=== PATIENT | male | born 1985 | race Caucasian/White ===

== ENCOUNTER → 2020-06-22 13:26 | Outpatient (CLI) | payer OTHER, SELFPAY ==
[2020-06-22 10:52] VITALS: BMI 24.2
[2020-06-22 15:45] LABS: Free T3 2.8 pg/mL (2.18-3.98); T4 Free Direct 0.99 ng/dL (0.76-1.46); Thyroid Stim Hormone (TSH) 0.47 uIU/mL (0.358-3.74)
== END ==
PROVIDERS: PCP Internal Medicine; Referring Provider Internal Medicine; Visit Provider Internal Medicine
DX: R06.02 Shortness of breath (principal); R00.2 Palpitations
CPT/HCPCS: 36415; 82533; 84439; 84443; 84481

== ENCOUNTER → 2020-07-19 07:55 | Outpatient (CLI) | payer OTHER, SELFPAY ==
[2020-07-12 13:00] VITALS: BMI 23.6
--- NOTE | 2020-07-19 07:58 | ECHOD_ITS ---
Reason For Study: ARRYTHYMIA Procedure This was a 2D Doppler, Color Flow transthoracic echocardiogram. Exam performed in department. Left Ventricle Normal LV size. Left ventricular systolic function is normal. The estimated ejection fraction is 60 %. No regional wall motion abnormalities noted. Right Ventricle Normal RV size. Normal systolic function. Atria Normal left atrium. Normal right atrium. Mitral Valve Normal mitral valve. Tricuspid Valve Normal tricuspid valve. Aortic Valve Normal aortic valve. Trisinus/trileaflet aortic valve. Pulmonic Valve Normal pulmonic valve. Great Vessels Normal aortic root. The pulmonary artery is normal size. Normal inferior vena cava. Pericardium/Pleural No pericardial effusion. MMode/2D Measurements & Calculations LVIDd: 4.4 cm IVSd: 0.64 cm Ao root diam: 3.0 cm LVIDs: 3.1 cm LVPWd: 0.77 cm RVDd: 3.0 cm FS: 30.2 % LAV(MOD-bp): 34.7 ml LVAd ap4: 33.8 cm2 SV(MOD-sp4): 71.6 ml LAV(MOD-bp) Indexed: 18.5 ml/m2 EDV(MOD-sp4): 116.7 ml LAV(MOD-sp2): 31.2 ml EDV(sp4-el): 119.6 ml LAV(MOD-sp4): 35.3 ml LVAs ap4: 18.9 cm2 ESV(MOD-sp4): 45.1 ml ESV(sp4-el): 44.4 ml EF(MOD-sp4): 61.4 % EF(sp4-el): 62.9 % SV(sp4-el): 75.2 ml LA A4 area: 14.7 cm2 LA dimension(2D): 3.0 cm RA A4 area: 11.4 cm2 Time Measurements MV dec time: 0.15 sec Doppler Measurements & Calculations MV E max harrison: 75.6 cm/sec Lat Peak E' Harrison: 15.9 cm/sec Med Peak E' Harrison: 12.0 cm/sec MV A max harrison: 70.2 cm/sec E/E' lat: 4.7 E/E' med: 6.3 MV E/A: 1.1 Ao V2 max: 138.7 cm/sec LV V1 max: 106.1 cm/sec PA V2 max: 119.2 cm/sec Ao max P.7 mmHg LV V1 max P.5 mmHg Interpretation Summary Normal LV size. Left ventricular systolic function is normal. The estimated ejection fraction is 60 %. Structurally normal valves. Ordering Physician: Conner Sandoval Referring Physician: AMERICA MCKINNEY Performed By: Joanna Galvin RDCS
== END ==
PROVIDERS: PCP Internal Medicine; Referring Provider Internal Medicine Cardiovascular Disease; Visit Provider Internal Medicine Cardiovascular Disease
DX: R55 Syncope and collapse (principal)
CPT/HCPCS: 93225; 93226; 93306

== ENCOUNTER → 2020-08-07 11:34 | Outpatient (CLI) | payer OTHER, SELFPAY ==
[2020-07-12 13:00] VITALS: BMI 23.6
[2020-08-07 12:26] LABS: Absolute Lymphocyte Count 1.34 X10^3/uL (0.83-4.51); Absolute Neutrophil Count 5.4 X10^3/uL (2.0-7.7); Basophil# 0.01 X10^3/uL; Basophil% 0.1 % (0-1); Eosinophil# 0.04 X10^3/uL; Eosinophils% 0.6 % (0-5); Hematocrit 51.2 % (40-54); Hemoglobin 16.1 g/dL (13.0-16.5); Lymphocyte # 1.34 X10^3/ul (4.0); Lymphocyte % 18.6 % (19-41); Mean Corp Hgb Conc 31.4 g/dL (32-36); Mean Corpuscular Hgb 28.8 pg (27.0-32.0); Mean Corpuscular Volume 91.6 fL (80-94); Monocyte# 0.43 X10^3/uL; NRBC Flagged by Analyzer 0 % (0-5); Neutrophil # 5.36 X10^3/uL (2.7-7.7); Neutrophil % 74.4 % (47-70); Platelet Count 260 K/mm3 (150-450); RBC Distribution Width CV 12.2 % (11.6-14.6); RBC Distribution Width SD 41.8 fl (35.1-43.9); Red Blood Count 5.59 M/mm3 (4.6-6.2); White Blood Count 7.2 K/mm3 (4.4-11.0)
[2020-08-07 12:47] LABS: Hemoglobin A1c 4.9 % (3.8-5.6)
[2020-08-07 12:52] LABS: ALB/GLOB Ratio 1.2 RATIO (0.9-2.4); AST(SGOT) 20 U/L (15-37); Alanine Aminotransfer ALT/SGPT 37 U/L (16-61); Albumin, Serum 4.4 g/dL (3.2-5.0); Alkaline Phosphatase 63 U/L (45-117); Anion Gap 6 (5-15); BUN 10 mg/dL (7-18); BUN/Creat Ratio 10.6 RATIO (10-20); Calcium,Total 9.3 mg/dL (8.5-10.1); Chloride 106 mmol/L (98-107); Creatinine, Serum 0.94 mg/dL (0.70-1.30); EST Glomerular Filtration Rate 98 mL/min (>60); Est Glom Filt Rate - Afr Amer 118 mL/min (>60); Globulin 3.6 g/dL (2.2-4.2); Glucose 90 mg/dL (74-106); Potassium 4.1 mmol/L (3.5-5.1); Sodium Level 139 mmol/L (136-145)
[2020-08-10 06:07] LABS: Epinephrine, Pl 72 pg/mL (0-62); Norepinephrine, Pl 369 pg/mL (0-874)
[2020-08-10 10:55] LABS: Dopamine, Pl <30 pg/mL (0-48)
== END ==
PROVIDERS: PCP Internal Medicine; Referring Provider Internal Medicine; Visit Provider Internal Medicine
DX: F41.9 Anxiety disorder, unspecified (principal); R00.2 Palpitations
CPT/HCPCS: 36415; 80053; 82384; 83036; 85025

== ENCOUNTER 2020-12-07 07:49 | Outpatient (RCR) | payer OTHER, SELFPAY ==
[2020-10-05 11:07] VITALS: BMI 24.2
== END 2021-01-30 23:59 ==
LOC: IMMUN 07:49
PROVIDERS: PCP Internal Medicine; Referring Provider Family Medicine; Visit Provider Family Medicine
DX: Z23 Encounter for immunization (principal)
CPT/HCPCS: 0001A; 0002A; 91300